=== PATIENT | female | born 1950 | race African-American/Black ===

== ENCOUNTER 2016-12-12 05:40 | Emergency (ER) | payer OTHER ==
[~2016-12-12] VITALS: Ht 172.7 cm; Wt 86.2 kg
[2016-12-12] MEDS ORDERED: SODIUM CHLORIDE 0.9% 1,000 ML IV ONE (07:36)
[2016-12-12 07:41] LABS: Albumin 3.2 g/dL (3.4-5.0); BUN/Creatinine Ratio 21.1; Bilirubin, Total 0.2 mg/dL (0.2-1.0); Calcium 9.5 mg/dL (8.5-10.1); Potassium 3.6 mmol/L (3.5-5.1); Total Protein 7.8 g/dL (6.4-8.2)
[2016-12-12] MEDS ORDERED: LORazepam 2MG/ML-1ML VIAL IV ONE ×2 (07:45→10:30)
[2016-12-12 07:56] LABS: CONDITION Y
[2016-12-12 07:59] LABS: Basophils # (auto) 0 uL; Basophils % (auto) 0.2 % (0.0-2.0); Eosinophils # (auto) 0.1 uL; Eosinophils % (auto) 0.8 % (0.0-7.0); Hematocrit 48.2 % (36.0-46.0); Hemoglobin 15.6 g/dL (12.2-16.2); Lymphocytes # (auto) 1.8 uL; Lymphocytes % (auto) 11.6 % (10.0-50.0); Mean Corpuscular Hemoglobin 27.6 pg (28.0-32.0); Mean Corpuscular Hgb Conc. 32.3 g/dL (32.0-36.0); Mean Corpuscular Volume 85.5 fL (80.0-100.0); Mean Platelet Volume 13.1 fL (7.4-10.4); Monocytes % (auto) 6.7 % (0.0-12.0); Neutrophils # (auto) 12.6 uL; Neutrophils % (auto) 80.7 % (37.0-80.0); Platelet Count (auto) 202 10^3/uL (140-450); Red Cell Distribution Width 15.1 % (11.6-16.0); SUSPECT SEE PRINTOUT; White Blood Cell 15.6 10^3/uL (4.4-10.8)
[2016-12-12] MEDS ORDERED: cefTRIAXone 1GM/50ML D5W 50 ML IV ONE (08:45)
[2016-12-12 09:17] LABS: Urine Bilirubin Negative (Negative); Urine Blood Negative /uL (Negative); Urine Color Yellow (Yellow); Urine Glucose Normal (Normal); Urine Ketone Negative (Negative); Urine Nitrite Negative (Negative); Urine RBC 1 /hpf (0 - 4); Urine Urobilinogen Normal (Negative); Urine pH 6.5 (5.0-8.0)
[2016-12-12 10:40] VITALS: BP 126/69
== END 2016-12-12 10:56 | disposition short-term general hospital (02) ==
LOC: ER 05:48
DX: E86.0 Dehydration (principal); G40.909 Epilepsy, unspecified, not intractable, without status epilepticus; G93.41 Metabolic encephalopathy; E11.9 Type 2 diabetes mellitus without complications; I10 Essential (primary) hypertension
CPT/HCPCS: 36415; 51702; 70450; 71010; 80053; 80307; 80320; 81001; 82962; 85025; 87040; 96361; 96365; 96375; 96376; 99285; J0696; J2060; J7030